=== PATIENT | female | born 1975 | race American Indian/Alaskan Native ===

== ENCOUNTER 2016-08-22 12:12 | Observation (INO) | payer OTHER ==
[2016-08-22 12:18] VITALS: BMI 20.1
--- NOTE | 2016-08-22 15:31 | C.PDOC ---
History Of Present Illness <Stephy Wick DO - Last Filed: 08/22/16 15:56> <Priyanka Aponte - Last Filed: 08/22/16 18:47> <Heath Painter - Last Filed: 08/22/16 23:02> Patient is a 40 year old female with past medical history of vertigo who reports to the ED with complaints of dizziness and lightheadedness that started at 8/8:30am. Patient states she had a similar episode a few years ago and was given medication for it which helped. Patient states that in the past the dizziness was associated with headaches but she currently denies headaches with this episode. Patient denies nausea, vomiting, chest pain, abdominal pain. Patient denies recent illness or neck stiffness. Patient states sitting still makes the dizziness better. Patient states any movement makes the dizziness worse and creates sensation of room spinning. (Stephy Wick DO) History Per: Patient Activity At Onset Of Symptoms: Had Just Stood up Associated Symptoms Preceding Syncopal Episode: Worse With Standing, Vertigo Worse With Change In Head Position Seizure Or Post-ictal Symptoms: None Possible Causative Factor(s): Vertigo Fall Associated With With Symptoms: No Severity: Mild Pain Scale Rating Of: 0 Recent travel outside of the [place]: No - Symptoms Of CVA Associated Symptoms: denies: Impaired Speech, Seizure Activity, New Vision Deficit(Left), New Vision Deficit(Right), Decreased Ability To Walk, New Confusion <Stephy Wick DO - Last Filed: 08/22/16 15:56> <Priyanka Aponte - Last Filed: 08/22/16 18:47> <Heath Painter - Last Filed: 08/22/16 23:02> Time Seen by Provider: 08/22/16 15:24 Chief Complaint (Nursing): Dizziness/Lightheaded Past Medical History - Medical History PMH: Asthma Other PMH: vertigo - Social History Hx Alcohol Use: No Hx Substance Use: No - Immunization History Hx Tetanus Toxoid Vaccination: Yes Hx Influenza Vaccination: Yes Hx Pneumococcal Vaccination: Yes <Stephy Wick DO - Last Filed: 08/22/16 15:56> Family History: States: Unknown Family Hx <Heath Painter - Last Filed: 08/22/16 23:02> Vital Signs: Last Vital Signs Temp 98.2 F 08/22/16 19:56 Pulse 81 08/22/16 19:56 Resp 16 08/22/16 19:56 BP 122/82 08/22/16 19:56 Pulse Ox 100 08/22/16 19:56 Review Of Systems Constitutional: Negative for: Fever, Chills, Weakness Eyes: Negative for: Pain, Vision Change ENT: Negative for: Nose Congestion Cardiovascular: Negative for: Chest Pain, Palpitations Respiratory: Negative for: Cough, Shortness of Breath Gastrointestinal: Negative for: Nausea, Vomiting, Abdominal Pain Genitourinary: Negative for: Dysuria Musculoskeletal: Negative for: Neck Pain, Back Pain Neurological: Positive for: Dizziness. Negative for: Weakness, Numbness, Incoordination, Change in Speech <Stephy Wick DO - Last Filed: 08/22/16 15:56> Physical Exam - Physical Exam Appears: Well, Non-toxic, No Acute Distress Skin: Normal Color, Warm, Dry Head: Atraumatic, Normacephalic Eye(s): bilateral: Normal Inspection, PERRL, EOMI Nose: Normal Oral Mucosa: Moist Tongue: Normal Appearing, No Swelling Lips: Normal Appearing, No Swelling, No Lesions Neck: Normal, Normal ROM, No Midline Cervical Tenderness, No Paracervical Tenderness Cardiovascular: Rhythm Regular Respiratory: Normal Breath Sounds, No Decreased Breath Sounds Gastrointestinal/Abdominal: Normal Exam, Bowel Sounds, Soft, No Tenderness Extremity: No Pedal Edema Neurological/Psych: Oriented x3, Normal Speech, Normal Cranial Nerves, Normal Motor, Normal Sensation, Normal Reflexes <Stephy Wick DO - Last Filed: 08/22/16 15:56> ED Course And Treatment O2 Sat by Pulse Oximetry: 98 <Stephy Wick DO - Last Filed: 08/22/16 15:56> ECG: Interpreted By Me ECG Rhythm: Sinus Rhythm ECG Interpretation: Normal Rate From EC <Priyanka Aponte - Last Filed: 08/22/16 18:47> Supervising Attending Note <Stephy Wick DO - Last Filed: 08/22/16 15:56> - Supervising Attending Note Comment: RESIDENT - Attestation: I have personally seen and examined this patient.: Yes I have fully participated in the care of the patient.: Yes I have reviewed all pertinent clinical information, including history, physical exam and plan: Yes <Priyanka Aponte - Last Filed: 08/22/16 18:47> <Heath Painter - Last Filed: 08/22/16 23:02> - Notes: Notes:: RECUR VERTIGO SINCE THIS MORNING. PS SIM TO PRIOR EPISODES SEV YRS AGO. WORSE W POSITION CHANGE. NO NV, MERCADO. EXAM +INDUCIBLE VERTIGO, NEURO INTACT (Priyanka Aponte) Medical Decision Making <Stephy Wick DO - Last Filed: 08/22/16 15:56> <Priyanka Aponte - Last Filed: 08/22/16 18:47> <Heath Painter - Last Filed: 08/22/16 23:02> Medical Decision Making: pt endorsed to me penidning reassessment s/p meclizine. pt eating in bed, in nad , asking for d/c. neuro intact. (Heath Painter) ED OBSERVATION <Stephy Wick DO - Last Filed: 08/22/16 15:56> Date of observation admission: 08/22/16 Time of observation admission: 13:00 <Priyanka Aponte - Last Filed: 08/22/16 18:47> <Heath Painter - Last Filed: 08/22/16 23:02> - Observation admission statement Patient is being placed in observation because:: VERTIGO (Priyanka Aponte) - Goals of Observation Goals of observation are:: SX IMPROVE (Priyanka Aponte) - Progress Note Progress Note: 08/22/16 18:13 PS FEELS BETTER BUT STILL W INDUCIBLE VERTIGO, UNSTEADY DURING GAIT TRIAL. WILL GIVE ADDL DOSE, REASSESS 08/22/16 19:00 S/O [address] PAINTER FU REASSESS, DISPO (Priyanka Aponte) Disposition <Stephy Wick DO - Last Filed: 08/22/16 15:56> <Priyanka Aponte - Last Filed: 08/22/16 18:47> - Disposition Disposition Time: 19:31 <Heath Painter - Last Filed: 08/22/16 23:02> - Disposition Disposition: HOME/ ROUTINE Condition: STABLE - Clinical Impression Clinical Impression: Dizziness
[2016-08-22 19:03] VITALS: O2SAT 100
[2016-08-22 19:57] VITALS: BP 122/82; PULSE 81; RESP 16; TEMP 98.2
--- NOTE | 2016-08-23 20:30 | CARD ---
APPROVED REPORT EKG Measurement Heart [id number] <Conclusion> Normal sinus rhythm Poor R wave progression V1 - V2
== END 2016-08-22 19:31 | disposition home or self-care (01) ==
LOC: C.ER 12:12 → C.9OBSV 13:00
PROVIDERS: ADMIT Emergency Medicine; ATTEND Emergency Medicine
DX: R42 Dizziness and giddiness (principal); J45.909 Unspecified asthma, uncomplicated